=== PATIENT | female | born 1975 | race Two or more races ===

== ENCOUNTER → 2025-06-01 | Outpatient (CLI) | payer MEDICAID, SELFPAY ==
--- NOTE | 2025-06-01 10:00 | XR_ITS ---
Examination: Breast ultrasound complete, bilateral Date and time of exam: June 01, 2025, 1020 hours INDICATIONS: Bilateral breast pain beginning 2 weeks ago, family history breast cancer, mammogram January 06, 2024 focal asymmetry inner upper right breast Technique: Real-time grayscale ultrasonographic imaging bilateral breasts, including all 4 quadrants as well as nipple retroareolar and axillary regions. Findings: Sonographic images right breast 4:00 nodule circumscribed 4 x 3 mm 3:00 nodule circumscribed 5 x 6 mm 5:00 cyst 6 x 7 mm 11:00 nodule lobular margins 5 x 6 mm 11:00 nodule lobular margins 7 x 8 mm Sonographic images left breast 2:00 nodule lobular margins 10 x 6 mm 11:00 nodule lobular margins 4 x 7 mm 11:00 nodule indistinct margins 8 x 7 mm, taller than wide IMPRESSION: BI-RADS Category 4: Suspicious for malignancy Recommend biopsy/repeat biopsy 11:00 nodule left breast to exclude malignancy, nodule is amenable to ultrasound-guided breast biopsy In addition 6-month continued bilateral breast sonography follow-up strongly advised to document stability of multiple additional nodules described above
--- NOTE | 2025-06-01 11:15 | XR_ITS ---
Examination: Diagnostic digital mammography, bilateral Computer aided detection 3-D breast Tomosynthesis, bilateral Date and time of exam: 06/01/2025, 10:10 a.m. Comparisons: 11/03/2019 through December 2023 Indications: Follow-up evaluation of probably benign right upper inner breast asymmetries. Technique: Nonmagnified MLO, CC views of the breasts to been obtained, reconstructed from 3-D Tomosynthesis images. R2 computer aided detection program utilized for evaluation of suspicious masses and/or abnormal calcifications. 3-D Tomosynthesis images obtained. Findings: There are scattered areas of fibroglandular density. No evidence of abnormal masses or suspicious calcifications.Stable left post biopsy marker clip Impression: BI-RADS category 2: Benign findings Recommend 1 year follow-up mammogram
== END | disposition home or self-care (01) ==
PROVIDERS: PCP Physician Assistant; Referring Provider Physician Assistant; Visit Provider Physician Assistant
DX: R92.323 Mammographic fibroglandular density, bilateral breasts (principal); N63.22 Unspecified lump in the left breast, upper inner quadrant; N63.15 Unspecified lump in the right breast, overlapping quadrants; N63.21 Unspecified lump in the left breast, upper outer quadrant; N63.11 Unspecified lump in the right breast, upper outer quadrant; N63.14 Unspecified lump in the right breast, lower inner quadrant
CPT/HCPCS: 76641; 77062; 77066; G0279